=== PATIENT | male | born 1985 | race Caucasian/White ===

== ENCOUNTER 2022-08-23 17:36 | Emergency (ER) | payer MEDICAID ==
[~2022-08-23] VITALS: Ht 170.2 cm; Wt 100.0 kg
[2022-08-23 17:57] VITALS: BP 153/96
== END 2022-08-23 22:16 | disposition home or self-care (01) ==
LOC: ER 17:38
DX: R20.0 Anesthesia of skin (principal); M79.601 Pain in right arm
CPT/HCPCS: 29125; 93005; 99283; L3908